=== PATIENT | male | born 1985 | race Two or more races ===

== ENCOUNTER 2019-01-27 18:57 | Emergency (ER) | payer BC ==
[2019-01-27] MEDS ORDERED: Ketorolac 60 MG/2 ML SDV IM ONE (19:15)
--- NOTE | 2019-01-27 19:21 | EDM.PDOC ---
ED HPI GENERAL MEDICAL PROBLEM - General Chief Complaint: Lower Extremity Injury/Pain Stated Complaint: TWISTED LEFT KNEE, FELT POP Time Seen by Provider: 01/27/19 19:01 Source of Information: Reports: Patient - History of Present Illness INITIAL COMMENTS - FREE TEXT/NARRATIVE: HISTORY AND PHYSICAL: History of present illness: [] Review of systems: As per history of present illness and below otherwise all systems reviewed and negative. Past medical history: As per history of present illness and as reviewed below otherwise noncontributory. Surgical history: As per history of present illness and as reviewed below otherwise noncontributory. Social history: No reported history of drug or alcohol abuse. Family history: As per history of present illness and as reviewed below otherwise noncontributory. Physical exam: HEENT: Atraumatic, normocephalic, pupils reactive, negative for conjunctival pallor or scleral icterus, mucous membranes moist, throat clear, neck supple, nontender, trachea midline. Lungs: Clear to auscultation, breath sounds equal bilaterally, chest nontender. Heart: S1S2, regular, negative for clicks, rubs, or JVD. Abdomen: Soft, nondistended, nontender. Negative for masses or hepatosplenomegaly. Negative for costovertebral tenderness. Pelvis: Stable nontender. Genitourinary: Deferred. Rectal: Deferred. Extremities: Atraumatic, negative for cords or calf pain. Neurovascular unremarkable. Neuro: Awake, alert, oriented. Cranial nerves II through XII unremarkable. Cerebellum unremarkable. Motor and sensory unremarkable throughout. Exam nonfocal. Diagnostics: [] Therapeutics: [] Impression: [] Definitive disposition and diagnosis as appropriate pending reevaluation and review of above. Left Knee Pain Score (Numeric/FACES): 3 - Related Data Allergies Allergy/AdvReac Type Severity Reaction Status Date / Time No Known Allergies Allergy Verified 01/27/19 19:01 Home Meds: Home Meds . [No Known Home Meds] 01/27/19 [History] Past Medical History - Past Health History Medical/Surgical History: Denies Medical/Surgical History HEENT History: Reports: None Cardiovascular History: Reports: None Respiratory History: Reports: None Gastrointestinal History: Reports: None Genitourinary History: Reports: None Musculoskeletal History: Reports: None Neurological History: Reports: None Psychiatric History: Reports: None Endocrine/Metabolic History: Reports: None Dermatologic History: Reports: None - Infectious Disease History Infectious Disease History: Reports: None Social & Family History - Family History Family Medical History: Noncontributory - Tobacco Use Smoking Status *Q: Never Smoker - Recreational Drug Use Recreational Drug Use: No Course - Vital Signs Last Recorded V/S: Last Vital Signs Temp 97.8 F 01/27/19 19:01 Pulse 107 H 01/27/19 19:01 Resp 20 01/27/19 19:01 BP 164/88 H 01/27/19 19:01 Pulse Ox 98 01/27/19 19:01 - Orders/Labs/Meds Orders: Active Orders 24 hr Category Date Time Status Knee 1V or 2V Lt [CR] Stat Exams 01/27/19 19:15 Ordered Meds: Medications Discontinued Medications Generic Name Dose Route Start Last Admin Trade Name Freq PRN Reason Stop Dose Admin Ketorolac Tromethamine 60 mg 01/27/19 19:15 Toradol IM 01/27/19 19:16 ONETIME ONE Departure - Discharge Information
--- NOTE | 2019-01-27 19:52 | EDM.PDOC ---
ED HPI GENERAL MEDICAL PROBLEM - General Chief Complaint: Lower Extremity Injury/Pain Stated Complaint: TWISTED LEFT KNEE, FELT POP Time Seen by Provider: 01/27/19 19:01 Source of Information: Reports: Patient History Limitations: Reports: No Limitations - History of Present Illness INITIAL COMMENTS - FREE TEXT/NARRATIVE: Presents reporting left knee pain. The patient states that he was playing basketball just prior to arrival when someone stepped on his foot, his left knee twisted and he fell to the ground. He was not injured when he fell but he heard a pop when he twisted his knee. Now he has tenderness, pain and some mild swelling on the lateral side. Left Knee Pain Score (Numeric/FACES): 3 - Related Data Allergies Allergy/AdvReac Type Severity Reaction Status Date / Time No Known Allergies Allergy Verified 01/27/19 19:01 Home Meds: Home Meds . [No Known Home Meds] 01/27/19 [History] Past Medical History - Past Health History Medical/Surgical History: Denies Medical/Surgical History HEENT History: Reports: None Cardiovascular History: Reports: None Respiratory History: Reports: None Gastrointestinal History: Reports: None Genitourinary History: Reports: None Musculoskeletal History: Reports: None Neurological History: Reports: None Psychiatric History: Reports: None Endocrine/Metabolic History: Reports: None Dermatologic History: Reports: None - Infectious Disease History Infectious Disease History: Reports: None Social & Family History - Family History Family Medical History: Noncontributory - Tobacco Use Smoking Status *Q: Never Smoker - Recreational Drug Use Recreational Drug Use: No Review of Systems - Review of Systems Review Of Systems: ROS reveals no pertinent complaints other than HPI. ED EXAM, GENERAL - Physical Exam Exam: See Below Exam Limited By: No Limitations General Appearance: Alert, No Apparent Distress Nose: Normal Inspection Throat/Mouth: Normal Inspection Head: Atraumatic, Normocephalic Neck: Normal Inspection Respiratory/Chest: No Respiratory Distress, Lungs Clear, Normal Breath Sounds Cardiovascular: Normal Peripheral Pulses, Regular Rate, Rhythm, No Murmur Extremities: Normal Inspection, Other (Left knee mild swelling lateral, mild tenderness lateral, no ecchymosis deformity crepitus. Posttibial pulse strong and CMS intact distally) Neurological: Alert, Oriented, Normal Cognition Psychiatric: Normal Affect, Normal Mood Skin Exam: Warm, Dry, Intact, Normal Color, No Rash Lymphatic: No Adenopathy Course - Vital Signs Last Recorded V/S: Last Vital Signs Temp 36.6 C 01/27/19 19:01 Pulse 107 H 01/27/19 19:01 Resp 20 01/27/19 19:01 BP 164/88 H 01/27/19 19:01 Pulse Ox 98 01/27/19 19:01 - Orders/Labs/Meds Orders: Active Orders 24 hr Category Date Time Status Knee 1V or 2V Lt [CR] Stat Exams 01/27/19 19:15 Ordered Meds: Medications Discontinued Medications Generic Name Dose Route Start Last Admin Trade Name [place] PRN Reason Stop Dose Admin Ketorolac Tromethamine 60 mg 01/27/19 19:15 Toradol IM 01/27/19 19:16 ONETIME ONE Departure - Departure Time of Disposition: 20:32 Disposition: Home, Self-Care 01 Condition: Good Clinical Impression: Knee LCL sprain Qualifiers: Encounter type: initial encounter Laterality: left Qualified Code(s): S83.422A - Sprain of lateral collateral ligament of left knee, initial encounter - Discharge Information Referrals: PCP,None [Primary Care Provider] - Orthopedic Clinic [Outside] Additional Instructions: 1. Call orthopedics in am for an appointment. Your records have been sent 2. Wear knee brace. 3. Aleve 2 tabs am and pm or ibuprofen 3 tabs three times daily as needed for pain 4. Elevate left knee tonight. Cool pack 20 minutes every 3-4 hours. - My Orders Last 24 Hours: My Active Orders 01/27/19 19:15 Knee 1V or 2V Lt [CR] Stat - Assessment/Plan Last 24 Hours: My Active Orders 01/27/19 19:15 Knee 1V or 2V Lt [CR] Stat
--- NOTE | 2019-01-28 13:52 | CR ---
EXAM DATE: 01/27/19 PATIENT'S AGE: 33 Patient: HUMAIRA WADE Facility: [facility] Site . Site : [id number] Study: XRay-Knee Left [id number]/30/2019 7:52:16 PM Ordering Physician: TOÑO Final Report: INDICATION: Trauma with pain, swelling, twisted knee TECHNIQUE: Two views left knee COMPARISON: None FINDINGS: Two views of the left knee reveal a subtle acute appearing avulsion type fracture involving the lateral aspect of the proximal left tibia worrisome for an avulsion type fracture at the lateral collateral ligament complex insertion. No other fracture and no malalignment is seen. A small amount of fluid in the suprapatellar bursa region is suspected. IMPRESSION: 1. Acute appearing avulsion type fracture involving the lateral aspect of the proximal left tibia as discussed above. 2. Suspect a small joint effusion. Dictated by Brandon Conroy MD @ Jan 27 2019 8:08PM Signed by: Brandon Conroy MD @01/27/2019 8:12:31 PM (Electronic Signature) Report Signed by Proxy. [facility]ENTER[facility]arita
== END 2019-01-27 20:48 | disposition home or self-care (01) ==
LOC: MW.ED 18:57
DX: S83.422A Sprain of lateral collateral ligament of left knee, initial encounter (principal); X50.1XXA Overexertion from prolonged static or awkward postures, initial encounter
CPT/HCPCS: 73560; 96372; 99283; J1885; 99282

== ENCOUNTER 2023-04-12 01:45 | Emergency (ER) | payer OTHER ==
[2023-04-12] MEDS ORDERED: chlordiazePOXIDE 25 MG Cap PO ONE (03:06)
== END 2023-04-12 03:30 | disposition home or self-care (01) ==
LOC: MW.ED 01:45
DX: F10.239 Alcohol dependence with withdrawal, unspecified (principal)
CPT/HCPCS: 99284; A9270; 99283